=== PATIENT | female | born 1995 | race Two or more races ===

== ENCOUNTER 2016-08-21 20:41 | Observation (INO) | payer OTHER ==
[~2016-08-21] VITALS: Ht 157.5 cm; Wt 59.0 kg
[2016-08-21] MEDS ORDERED: TERBUTALINE SULFATE 1 MG/ML 1ML VIAL SC ONE (21:24)
[2016-08-21] MEDS ORDERED: LACTATED RINGER'S 1,000 ML IV ONE (21:25)
[2016-08-21] MEDS ORDERED: TERBUTALINE SULFATE 1 MG/ML 1ML VIAL SC SCH (21:30)
[2016-08-21] MEDS ORDERED: SODIUM CITR/CITRIC ACID ORAL SOLN 30 ML ONE (22:23)
[2016-08-22] MEDS ORDERED: SODIUM CITR/CITRIC ACID ORAL SOLN 30 ML PO SCH (09:00)
== END 2016-08-21 23:53 | disposition home or self-care (01) | DRG 781 ==
LOC: LDRP 20:41
PROVIDERS: ADMIT Obstetrics & Gynecology; ATTEND Obstetrics & Gynecology
DX: O26.892 Other specified pregnancy related conditions, second trimester (principal); R11.0 Nausea; R10.9 Unspecified abdominal pain; O21.2 Late vomiting of pregnancy; Z3A.26 26 weeks gestation of pregnancy
CPT/HCPCS: 59025; 81002; 96360; 96372; G0378; J3105; 96365

== ENCOUNTER 2018-04-27 05:23 | Emergency (ER) | payer MEDICAID, OTHER ==
[~2018-04-27] VITALS: Ht 160 cm; Wt 68.0 kg
[2018-04-27] MEDS ORDERED: SODIUM CHLORIDE 0.9% 500 ML IV ONE (06:13)
[2018-04-27] MEDS ORDERED: ONDANSETRON HCL 4 MG/2 ML VIAL IV ONE (06:15)
[2018-04-27 06:58] LABS: Basophils # (auto) 0 uL; Basophils % (auto) 0.1 % (0.0-2.0); Eosinophils # (auto) 0.1 uL; Eosinophils % (auto) 0.3 % (0.0-7.0); Hematocrit 48.7 % (36.0-46.0); Hemoglobin 16.3 g/dL (12.2-16.2); Lymphocytes # (auto) 0.6 uL; Lymphocytes % (auto) 3.1 % (10.0-50.0); Mean Corpuscular Hemoglobin 29.9 pg (28.0-32.0); Mean Corpuscular Hgb Conc. 33.6 g/dL (32.0-36.0); Monocytes # (auto) 0.9 uL; Monocytes % (auto) 4.8 % (0.0-12.0); Neutrophils # (auto) 17.3 uL; Neutrophils % (auto) 91.7 % (37.0-80.0); Platelet Count (auto) 311 10^3/uL (140-450); Red Blood Cells 5.47 10^6/uL (4.0-5.20); Red Cell Distribution Width 12.9 % (11.8-14.3); White Blood Cell 18.9 10^3/uL (4.4-10.8)
[2018-04-27 07:05] LABS: Albumin 4.7 g/dL (3.4-5.0); Calcium 9.2 mg/dL (8.5-10.1); Potassium 3.2 mmol/L (3.5-5.1)
[2018-04-27 07:08] LABS: BUN/Creatinine Ratio 16.7; Bilirubin, Total 1.1 mg/dL (0.2-1.0); Total Protein 8.3 g/dL (6.4-8.2)
[2018-04-27] MEDS ORDERED: SODIUM CHLORIDE 0.9% 1,000 ML IVB ONE (07:27)
[2018-04-27 08:06] LABS: Urine Bacteria FEW /hpf (None Seen); Urine Blood 2+ /uL (Negative); Urine Mucus FEW (None Seen); Urine WBC 7 /hpf (0 - 5)
[2018-04-27] MEDS ORDERED: PROMETHAZINE HCL 25 MG/ML 1ML IV ONE (10:30)
[2018-04-27] MEDS ORDERED: SODIUM CHLORIDE 0.9% 1,000 ML IV ONE (11:30)
[2018-04-27] MEDS ORDERED: cefTRIAXone 1GM/50ML D5W 50 ML IV ONE (12:00)
[2018-04-27 13:21] VITALS: BP 93/46
== END 2018-04-27 13:22 | disposition home or self-care (01) ==
LOC: ER 05:23
DX: K52.9 Noninfective gastroenteritis and colitis, unspecified (principal); K90.49 Malabsorption due to intolerance, not elsewhere classified; K80.20 Calculus of gallbladder without cholecystitis without obstruction; N39.0 Urinary tract infection, site not specified; Z88.0 Allergy status to penicillin
CPT/HCPCS: 36415; 74176; 80053; 81001; 81025; 83690; 83735; 85025; 96361; 96365; 96366; 96375; 99284; J0696; J2405; J2550; J7030; J7040

== ENCOUNTER 2018-04-29 17:41 | Emergency (ER) | payer MEDICAID ==
[~2018-04-29] VITALS: Ht 160 cm; Wt 68.0 kg
[2018-04-29 17:48] VITALS: BP 107/71
[2018-04-29 18:18] LABS: Urine Bacteria NONE SEEN /hpf (None Seen); Urine Blood 2+ /uL (Negative); Urine Mucus FEW (None Seen); Urine Specific Gravity 1.018 (1.001-1.035); Urine WBC 1 /hpf (0 - 5)
[2018-04-29 18:31] LABS: Basophils # (auto) 0 uL; Basophils % (auto) 0.3 % (0.0-2.0); Eosinophils # (auto) 0.1 uL; Eosinophils % (auto) 1.6 % (0.0-7.0); Hematocrit 42.1 % (36.0-46.0); Hemoglobin 14.5 g/dL (12.2-16.2); Lymphocytes # (auto) 1.6 uL; Lymphocytes % (auto) 24.9 % (10.0-50.0); Mean Corpuscular Hemoglobin 30.6 pg (28.0-32.0); Mean Corpuscular Hgb Conc. 34.5 g/dL (32.0-36.0); Mean Corpuscular Volume 88.7 fL (80.0-100.0); Monocytes # (auto) 0.7 uL; Monocytes % (auto) 10.3 % (0.0-12.0); Neutrophils # (auto) 4.1 uL; Neutrophils % (auto) 62.9 % (37.0-80.0); Nucleated Red Blood Cells % 0.1 %; Platelet Count (auto) 243 10^3/uL (140-450); Red Blood Cells 4.75 10^6/uL (4.0-5.20); Red Cell Distribution Width 12.8 % (11.8-14.3); White Blood Cell 6.5 10^3/uL (4.4-10.8)
[2018-04-29 18:57] LABS: Albumin 3.9 g/dL (3.4-5.0); BUN/Creatinine Ratio 5.4; Calcium 8.7 mg/dL (8.5-10.1); Potassium 3.4 mmol/L (3.5-5.1)
[2018-04-29 19:00] LABS: Bilirubin, Total 0.5 mg/dL (0.2-1.0); Total Protein 7.4 g/dL (6.4-8.2)
[2018-04-29] MEDS ORDERED: SODIUM CHLORIDE 0.9% 1,000 ML IVB ONE (19:35)
[2018-04-29] MEDS ORDERED: ONDANSETRON HCL 4 MG/2 ML VIAL IV ONE (19:45)
[2018-04-29] MEDS ORDERED: MORPHINE SULFATE 4 MG/ML SYR/VIAL IV ONE (19:45)
== END 2018-04-29 21:48 | disposition home or self-care (01) ==
LOC: ER 17:41
DX: K92.1 Melena (principal); Z88.0 Allergy status to penicillin
CPT/HCPCS: 36415; 76705; 80053; 81001; 85025; 94761; 96374; 96375; 99284; J2270; J2405; J7030

== ENCOUNTER → 2021-09-28 08:08 | Emergency (ER) | payer MEDICAID, OTHER ==
[~2021-09-28] VITALS: Ht 162.6 cm; Wt 74.8 kg
[~2021-09-28 08:08] MED LIST: CIP03OS LEFTEYE; FLUORESCEIN SOD OPTH TEST STRIP EACHEYE ONE; FLUORESCEIN SOD OPTH TEST STRIP ONE; IBUP800T26 PO; IBUP800T27 PO; NEOM0.1S10 EACHEYE
[2021-09-28 08:12] VITALS: BP 118/83
== END | disposition home or self-care (01) ==
LOC: ER 08:08
DX: H10.32 Unspecified acute conjunctivitis, left eye (principal); Z79.1 Long term (current) use of non-steroidal anti-inflammatories (NSAID); Z79.2 Long term (current) use of antibiotics; Z88.0 Allergy status to penicillin

== ENCOUNTER 2021-09-29 14:50 | Emergency (ER) | payer MEDICAID ==
[~2021-09-29] VITALS: Ht 162.6 cm; Wt 74.8 kg
[~2021-09-29 14:50] MED LIST changes: -FLUORESCEIN SOD OPTH TEST STRIP EACHEYE ONE; -FLUORESCEIN SOD OPTH TEST STRIP ONE; -IBUP800T26 PO; -NEOM0.1S10 EACHEYE
[2021-09-29 15:17] VITALS: BP 104/74
[2021-09-29] MEDS ORDERED: NEOM0.1S10 EACHEYE (15:39)
[2021-09-29] MEDS ORDERED: IBUP800T26 PO (15:40)
== END 2021-09-29 15:48 | disposition home or self-care (01) ==
LOC: ER 14:50
DX: H10.13 Acute atopic conjunctivitis, bilateral (principal); Z88.0 Allergy status to penicillin

== ENCOUNTER 2023-06-04 13:35 | Emergency (ER) | payer MEDICAID ==
[~2023-06-04] VITALS: Ht 162.6 cm; Wt 78.8 kg
[~2023-06-04 13:35] MED LIST changes: +IBUP-1455 PO; +IBUP-1456 PO; -IBUP800T27 PO; +NEOM0.1S10 EACHEYE
[2023-06-04] MEDS ORDERED: SODIUM CHLORIDE 0.9% 1,000 ML IV ONE (13:45)
[2023-06-04] MEDS ORDERED: ONDANSETRON HCL 4 MG/2 ML VIAL IV ONE (13:45)
[2023-06-04 14:23] LABS: Basophils # (auto) 0 10 ^3/uL (0-0.2); Basophils % (auto) 0.2 % (0.0-2.0); Eosinophils # (auto) 0 10 ^3/uL (0-0.8); Eosinophils % (auto) 0.2 % (0.0-7.0); Hematocrit 42.2 % (36.0-46.0); Hemoglobin 14.5 g/dL (12.2-16.2); Lymphocytes # (auto) 1.3 10 ^3/uL (0.4-5.4); Lymphocytes % (auto) 8.4 % (10.0-50.0); Mean Corpuscular Hemoglobin 30.9 pg (28.0-32.0); Mean Corpuscular Hgb Conc. 34.3 g/dL (32.0-36.0); Monocytes # (auto) 0.8 10 ^3/uL (0-1.3); Monocytes % (auto) 5.3 % (0.0-12.0); Neutrophils # (auto) 13.7 10 ^3/uL (1.6-8.6); Neutrophils % (auto) 85.9 % (37.0-80.0); Nucleated Red Blood Cells % 0.1 %; Red Blood Cells 4.68 10^6/uL (4.0-5.20); Red Cell Distribution Width 13.5 % (11.8-14.3)
[2023-06-04 14:36] LABS: Chloride 104 mmol/L (98-107); Potassium 3.7 mmol/L (3.5-5.1); Sodium 135 mmol/L (136-145)
[2023-06-04 14:37] LABS: Anion Gap 8 (5-15); Calcium 9.4 mg/dL (8.5-10.1); Carbon Dioxide 23 mmol/L (20-30)
[2023-06-04 14:42] LABS: BUN/Creatinine Ratio 9.8 (10.0-20.0); Blood Urea Nitrogen 5 mg/dL (9-23); Glucose 86 mg/dL (74-106)
[2023-06-04 18:30] LABS: Urine Amorphous Crystal FEW /hpf (None Seen); Urine Bacteria FEW /hpf (None Seen); Urine Blood Negative /uL (Negative); Urine Clarity Clear (Clear); Urine Color Yellow (Yellow); Urine Mucus FEW (None Seen); Urine Protein, UAD TRACE (Negative); Urine Specific Gravity 1.021 (1.001-1.035); Urine Urobilinogen Normal (Negative); Urine WBC 1 /hpf (0 - 5)
[2023-06-04] MEDS ORDERED: CEPH500T PO ×2 (18:51)
[2023-06-04] MEDS ORDERED: CEPHALEXIN 250 MG CAP PO ONE (19:00)
[2023-06-04] MEDS ORDERED: NITROFURANTOIN 100 mg CAP PO ONE (19:15)
[2023-06-04 19:40] VITALS: BP 107/69; PULSE 86; RESP 18; TEMP 98.7; O2SAT 99
== END 2023-06-04 19:58 | disposition home or self-care (01) ==
LOC: ER 13:35
DX: O21.8 Other vomiting complicating pregnancy (principal); Z79.1 Long term (current) use of non-steroidal anti-inflammatories (NSAID); Z79.2 Long term (current) use of antibiotics; Z79.899 Other long term (current) drug therapy; Z88.0 Allergy status to penicillin; Z3A.12 12 weeks gestation of pregnancy
CPT/HCPCS: 36415; 76801; 80048; 81001; 85025; 96361; 96374; 99285; J2405; J7030